=== PATIENT | male | born 1950 | race Caucasian/White ===

== ENCOUNTER 2016-09-01 13:16 | Emergency (ER) | payer OTHER ==
[2016-09-01] MEDS ORDERED: NORCO-7.5 PO ONE (15:07)
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
[2016-09-01 16:42] VITALS: BP 121/79
== END 2016-09-01 16:40 | disposition home or self-care (01) ==
LOC: P.ED 13:16
DX: S22.42XA Multiple fractures of ribs, left side, initial encounter for closed fracture (principal); R10.9 Unspecified abdominal pain; M25.561 Pain in right knee; V89.2XXA Person injured in unspecified motor-vehicle accident, traffic, initial encounter; I10 Essential (primary) hypertension; J44.9 Chronic obstructive pulmonary disease, unspecified; F17.210 Nicotine dependence, cigarettes, uncomplicated; Z71.6 Tobacco abuse counseling; Z79.899 Other long term (current) drug therapy
CPT/HCPCS: 71101; 99283